=== PATIENT | male | born 1965 | race Caucasian/White ===

== ENCOUNTER 2020-04-17 12:48 | Emergency (ER) | payer OTHER ==
[~2020-04-17] VITALS: Ht 180.3 cm; Wt 79.5 kg
[2020-04-17 12:56] VITALS: Ht 180.3 cm; Wt 79.5 kg
[2020-04-17] MEDS ORDERED: LAMICTAL150 M1 (12:59)
[2020-04-17 13:41] LABS: BASOPHILS 0.3 % (0-2); HEMATOCRIT 42.5 % (42.0-54.0); HEMOGLOBIN 13.9 g/dL (13.5-17.5); IMMATURE GRANULOCYTES 0.1 % (0-5); LYMPHOCYTES 21.9 % (15-50); MCH 31.5 pg (26.0-34.0); MCHC 32.7 g/dL (31.0-37.0); MCV 96.4 fL (80.0-100.0); MEAN PLATELET VOLUME 9.1 fL (7.4-10.4); MONOCYTES 6.4 % (2-11); NEUTROPHILS 70.3 % (40-80); PLATELET COUNT 257 10x3/uL (130-400); RBC 4.41 10x6/uL (4.20-6.10); RDW 13.5 % (11.5-14.5); WBC 7.7 10x3/uL (4.8-10.8)
[2020-04-17 13:59] LABS: ANION GAP 11.6 mmol/L (8-16); CALCIUM 10.9 mg/dL (8.5-10.1); CARBON DIOXIDE 29.6 mmol/L (21.0-32.0); CREATININE - SERUM 1.2 mg/dL (0.6-1.3); POTASSIUM - SERUM 4.2 mmol/L (3.5-5.1)
[2020-04-17 14:06] LABS: ALBUMIN 4.2 g/dL (3.4-5.0); BILIRUBIN - TOTAL 0.23 mg/dL (0.2-1.3); PROTEIN - SERUM 7.4 g/dL (6.4-8.2)
[2020-04-17 15:48] LABS: BILIRUBIN NEGATIVE (NEGATIVE); KETONE NEGATIVE (NEGATIVE); NITRITE NEGATIVE (NEGATIVE); UROBILINOGEN NORMAL mg/dL (< 2)
[2020-04-17 16:03] LABS: WHITE CELLS - URINE OCC HPF (0-1)
[2020-04-17 16:55] VITALS: BP 117/69
== END 2020-04-17 16:57 | disposition home or self-care (01) ==
LOC: D.ER 12:48
PROVIDERS: Emergency Medicine
DX: R53.1 Weakness (principal); E83.52 Hypercalcemia; R91.1 Solitary pulmonary nodule; R42 Dizziness and giddiness; R94.4 Abnormal results of kidney function studies